=== PATIENT | female | born 1985 | race Caucasian/White ===

== ENCOUNTER → 2016-09-13 | Outpatient (CLI) | payer BC ==
[2016-09-18 15:05] LABS: HPV 16 Not Detected (NOTDET); HPV 18 Not Detected (NOTDET)
== END ==
LOC: MW.CHOBGYN 09:32
PROVIDERS: ATTEND Nurse Practitioner Women's Health
DX: E03.9 Hypothyroidism, unspecified (principal)
CPT/HCPCS: 36415; 84443; 87624; G0145

== ENCOUNTER 2020-06-04 09:29 | Day surgery (SDC) | payer MEDICAID ==
[~2020-06-04 09:29] MED LIST: Lactated Ringers 1,000 ML IV SCH; Midazolam 1 MG/ML 2 ML SDV ONE; Propofol 200 MG/20 ML SDV ONE
--- NOTE | 2020-06-04 10:40 | PCM.PREANE ---
Preanesthetic Assessment - Anesthesia/Transfusion/Family Hx Anesthesia History: Prior Anesthesia Without Reaction Family History of Anesthesia Reaction: No Transfusion History: No Prior Transfusion(s) Intubation History: Unknown - Review of Systems General: No Symptoms Pulmonary: No Symptoms Cardiovascular: No Symptoms Gastrointestinal: Hematochezia (h/o diverticulitis- being treated) Neurological: No Symptoms Other: Reports: None - Physical Assessment Height: 5 ft 2 in Weight: 60.781 kg ASA Class: 2 Mental Status: Alert & Oriented x3 Airway Class: Mallampati = 2 Dentition: Reports: Normal Dentition Thyro-Mental Finger Breadths: 3 Mouth Opening Finger Breadths: 3 ROM/Head Extension: Full Lungs: Clear to Auscultation, Normal Respiratory Effort Cardiovascular: Regular Rate, Regular Rhythm - Allergies Allergies/Adverse Reactions: Allergies Allergy/AdvReac Type Severity Reaction Status Date / Time No Known Allergies Allergy Verified 05/31/20 08:22 - Blood Blood Available: No - Anesthesia Plan Pre-Op Medication Ordered: None - Acknowledgements Anesthesia Type Planned: MAC Pt an Appropriate Candidate for the Planned Anesthesia: Yes Alternatives and Risks of Anesthesia Discussed w Pt/Guardian: Yes Pt/Guardian Understands and Agrees with Anesthesia Plan: Yes PreAnesthesia Questionnaire HEENT History: Reports: None Cardiovascular History: Reports: None Respiratory History: Reports: None Gastrointestinal History: Reports: Irritable Bowel Syndrome, Other (See Below) Other Gastrointestinal History: diverticulitis Genitourinary History: Reports: None 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 History: Reports: Endometriosis, Polycystic Ovaries, Musculoskeletal History: Reports: None Neurological History: Reports: None Psychiatric History: Reports: Anxiety, Depression (mild) Endocrine/Metabolic History: Reports: Hypothyroidism Other Endocrine/Metabolic History: hypothyroidism in the past, no longer on medication Hematologic History: Reports: None Immunologic History: Reports: None Oncologic (Cancer) History: Reports: None Dermatologic History: Reports: None - Past Surgical History Head Surgeries/Procedures: Reports: None HEENT Surgical History: Reports: None Cardiovascular Surgical History: Reports: None Respiratory Surgical History: Reports: None GI Surgical History: Reports: Cholecystectomy, Colonoscopy (15 years ago) Female Surgical History: Reports: Breast Implant, Section, D&C, Other (See Below) Other Female Surgeries/Procedures: hysteroscopy Endocrine Surgical History: Reports: None Neurological Surgical History: Reports: None Musculoskeletal Surgical History: Reports: None Oncologic Surgical History: Reports: None Dermatological Surgical History: Reports: None - SUBSTANCE USE Tobacco Use Status *Q: Former Tobacco User (quit 5 years ago) Tobacco Use Within Last Twelve Months: No - HOME MEDS Home Medications: Home Meds Multivitamin 1 tab PO DAILY 05/31/20 [History] - CURRENT (IN HOUSE) MEDS Current Meds: Current Medications Lactated Ringer's (Ringers, Lactated) 1,000 mls @ 125 mls/hr IV ASDIRECTED BREONNA Discontinued Medications Midazolam HCl (Versed 1 Mg/Ml) Confirm Administered Dose 2 mg .ROUTE .STK-MED ONE Stop: 06/04/20 07:02 Propofol (Diprivan 20 Ml) Confirm Administered Dose 600 mg .ROUTE .STK-MED ONE Stop: 06/04/20 07:02
--- NOTE | 2020-06-04 12:12 | PCM.OPNOTE ---
- General Post-Op/Procedure Note Date of Surgery/Procedure: 06/04/20 Operative Procedure(s): Colonoscopy Pre Op Diagnosis: Recurrent diverticulitis. Family history of ulcerative colitis. Post-Op Diagnosis: Severe sigmoid diverticuulosis without diverticulitis. No evidence of inflammatory bowel disease. Anesthesia Technique: MAC (ASA II) Primary Surgeon: Kenneth Ocasio Condition: Good Free Text/Narrative:: DICTATION [id number] CPT CODE 19267
[2020-06-04] MEDS ORDERED: Lactated Ringers 1,000 ML IV SCH (12:15)
--- NOTE | 2020-06-04 12:16 | PCM.POSTAN ---
POST ANESTHESIA ASSESSMENT - MENTAL STATUS Mental Status: Alert, Oriented - VITAL SIGNS Vital Signs: Last Vital Signs Temp 36.8 C 06/04/20 11:10 Pulse 67 06/04/20 11:10 Resp 15 06/04/20 11:10 BP 123/83 06/04/20 11:10 Pulse Ox 98 06/04/20 11:10 - RESPIRATORY Respiratory Status: Respiratory Rate WNL, Airway Patent, O2 Saturation Stable - CARDIOVASCULAR CV Status: Pulse Rate WNL, Blood Pressure Stable - GASTROINTESTINAL GI Status: No Symptoms - PAIN Pain Score: 0 - POST OP HYDRATION Hydration Status: Adequate & Stable - OBSERVATIONS Free Text/Narrative:: No aneshesia problems
--- NOTE | 2020-06-04 13:01 | OR ---
SURGEON: Kenneth Ocasio M.D. DATE OF PROCEDURE: 06/04/2020 OPERATION PERFORMED: Colonoscopy. PRIMARY SURGEON: Kenneth Ocasio M.D. ANESTHESIA: MAC. ASA CLASSIFICATION: II. PREOPERATIVE DIAGNOSIS: Recurrent diverticulitis. POSTOPERATIVE DIAGNOSIS: Severe sigmoid diverticulosis. No evidence of inflammatory bowel disease. DESCRIPTION OF PROCEDURE: The patient was taken to the endoscopy room and positioned on the endoscopy table in the left lateral decubitus position. Time-out was called for appropriate identification of the patient and procedure. Monitored anesthesia care was provided. The colonoscope was inserted into the rectum and advanced with minimal difficulty to the cecum. The cecum was identified by internal landmarks and external pressure. The cecum, ascending colon, hepatic flexure, transverse colon, splenic flexure, descending colon showed no tumors, polyps, diverticula, or angiodysplastic changes. Sigmoid colon itself demonstrates moderately severe diverticulosis. No stricture, spasm, or bleeding was noted. There was no evidence of inflammatory bowel disease or ulcerations. No polyps were encountered in the sigmoid colon nor anywhere else in the lower GI tract. The colonoscope was slowly withdrawn to the rectum and retroflexed to visualize the anal orifice from above. Again, no tumors or polyps were seen, and there were no acute hemorrhoidal changes. The colonoscope was then straightened, the rectum aspirated, and the colonoscope removed. The patient tolerated the procedure well and was taken to recovery room in stable condition. ISAK BOOKER /[id number]
--- NOTE | 2020-06-04 13:10 | PCM48HPAN ---
Post Anesthesia Note - EVALUATION WITHIN 48HRS OF ANESTHETIC Vital Signs in Normal Range: Yes Patient Participated in Evaluation: Yes Respiratory Function Stable: Yes Airway Patent: Yes Cardiovascular Function Stable: Yes Hydration Status Stable: Yes Pain Control Satisfactory: Yes Nausea and Vomiting Control Satisfactory: Yes Mental Status Recovered: Yes Vital Signs: Last Vital Signs Temp 36.8 C 06/04/20 11:10 Pulse 81 06/04/20 12:17 Resp 16 06/04/20 12:17 BP 124/67 06/04/20 12:17 Pulse Ox 95 06/04/20 12:17 - COMMENTS/OBSERVATIONS Free Text/Narrative:: No anesthesia problems
== END 2020-06-04 12:47 | disposition home or self-care (01) ==
LOC: MW.SDS 09:29
PROVIDERS: ATTEND Surgery
DX: K57.30 Diverticulosis of large intestine without perforation or abscess without bleeding (principal); F41.9 Anxiety disorder, unspecified; E03.9 Hypothyroidism, unspecified; F32.9 Major depressive disorder, single episode, unspecified; Z79.899 Other long term (current) drug therapy; Z98.890 Other specified postprocedural states; Z87.891 Personal history of nicotine dependence; Z80.52 Family history of malignant neoplasm of bladder
CPT/HCPCS: 45378; 81025; J2250; J2704; J7120